=== PATIENT | female | born 1975 | race Caucasian/White ===

== ENCOUNTER 2024-07-15 08:49 | Outpatient (AMB) | payer MEDICARE, SELFPAY ==
[2024-07-15 09:15] VITALS: BP 120/72; PULSE 58; O2SAT 99; BMI 46.7
--- NOTE | 2024-07-15 09:15 | A.OFFVIS_ITS ---
Vital Signs 07/15/24 09:15 Height 5 ft 5 in Weight 280 lb 10.375 oz BMI 46.7 BP 120/72 Blood Pressure Location Lt brachial Position Sitting Pulse 58 Pulse Source Pulse Oximeter Pulse Oximetry (%) 99 Oxygen Delivery Method Room Air Intake Visit Reasons: RA/Lm Intake Note: Patient presents for follow up on Rheumtoid and psoriatic arthritis. Allergies No Known Allergies Allergy (Verified 07/15/24 09:17) HPI HPI RA/Lm: Details: Gastric sleeve April 2024. Lost over 60lb. She feels well. She has not using Aleve. She takes Tylenol a 1000 mg when she needs it for pain but not every day. She recently had right hip MRI, which revealed degenerative changes with labral tear. She is following up with orthopedic surgeon in a week. Initial weight prior to gastric sleeve was 340 lb. [facility] Medical History (Updated 07/15/24 @ 09:45 by Son Oates MD) delivery delivered Psoriasis Hypertension Rheumatoid arthritis Psoriatic arthritis Surgical History (Updated 07/15/24 @ 09:22 by Giulia Khalil CMA) H/O hernia repair H/O: hysterectomy H/O gastric sleeve Social History (Updated 07/15/24 @ 09:22 by Giulia Khalil CMA) Alcohol intake: never Patient Tobacco Use Status: Never used Tobacco Review of Systems Const All systems reviewed & are unremarkable except as noted in HPI and below Physical Exam Vital Signs: Last Vital Signs Pulse 58 07/15/24 09:15 BP 120/72 07/15/24 09:15 Pulse Ox 99 07/15/24 09:15 Oxygen Delivery Method Room Air 07/15/24 09:15 BMI result Body Mass Index 46.7 Const Other: General: Comfortable CVS: RRR Respiratory: clear to auscultation bilaterally. Good respiratory effort Skin: No lesions seen MSK: No tenderness of joints. Good range of motion of upper extremity and lower extremities. Valgus deformity of knees bilateral present. Assessment & Plan Assessment & Plan (1) Osteoarthritis of right hip: Comment: On MRI with labral tear. Overall she has reduced pain since losing weight from gastric sleeve surgery 3 months ago. Code(s): M16.11 - Unilateral primary osteoarthritis, right hip Category: Medical Plan: Follow-up with orthopedic surgeon next week Continue to use Tylenol as needed Avoid oral NSAIDs in setting of gastric sleeve surgery. She can use topical diclofenac gel when needed p.r.n. [facility] Return to clinic in 3 months Coding Level of Care Code Est Pt Level 3 (56013) Complex EM visit Add On G2211 Diagnoses Osteoarthritis of right hip M16.11
== END 2024-07-15 09:44 | disposition home or self-care (01) ==
PROVIDERS: PCP Registered Nurse; Visit Provider Internal Medicine Rheumatology
DX: M16.11 Unilateral primary osteoarthritis, right hip (principal)
CPT/HCPCS: 99213; G2211

== ENCOUNTER → 2024-07-15 08:49 | Outpatient (BNVA) | payer MEDICARE, SELFPAY | PROVIDERS: PCP Registered Nurse; Visit Provider Internal Medicine Rheumatology | DX: M16.11 Unilateral primary osteoarthritis, right hip (principal) | CPT/HCPCS: 99212 ==